=== PATIENT | female | born 1940 | race Two or more races ===

== ENCOUNTER 2020-02-07 12:30 | Emergency (ER) | payer MEDICARE ==
[~2020-02-07] VITALS: Ht 152.4 cm; Wt 54.0 kg
[2020-02-07 15:36] LABS: CHLORIDE 104 mEq/L (98-107)
[2020-02-07 15:42] LABS: HEMATOCRIT. 33.5 % (36.0-48.0); HEMOGLOBIN. 11.3 g/dL (12.0-16.0); MEAN CORPUSCULAR HEMOGLOBIN 29.6 pg (28.0-32.0); MEAN CORPUSCULAR VOLUME 87.7 fL (81.0-99.0); MEAN PLATELET VOLUME 8.4 fl (7.4-10.4); PLATELET 327 x1000/uL (130-400); RED BLOOD CELL COUNT 3.82 mill/uL (4.2-5.4); RED CELL DISTRIBUTION WIDTH 21.7 % (11.6-14.6)
[2020-02-07] MEDS ORDERED: VANCOMYCIN 1 G PREMIX 200 ML IV ONE (16:15)
[2020-02-07] MEDS ORDERED: CEFAZOLIN 1000MG PREMIX 50 ML IV ONE ×2 (16:15→22:30)
[2020-02-07 16:52] LABS: PLATELET ESTIMATE NORMAL
[2020-02-07 17:04] LABS: CLARITY URINE CLEAR (CLEAR); COLOR URINE YELLOW (YELLOW); KETONES URINE TRACE (NEGATIVE); LEUKOCYTE ESTERASE URINE TRACE (NEGATIVE); NITRITE URINE NEGATIVE (NEGATIVE); OCCULT BLOOD URINE NEGATIVE (NEGATIVE); PROTEIN URINE 1+ (NEGATIVE); SPECIFIC GRAVITY URINE 1.033 (1.005-1.030)
[2020-02-07] MEDS ORDERED: IOHEXOL-300 100 ML BOTTLE ONE (17:24)
[2020-02-07] MEDS ORDERED: HYDROCODONE/ACETAMINOPHEN 5/325MG TABLET PO ONE (17:30)
[2020-02-08] MEDS: CEFAZOLIN 1000MG PREMIX 50 ML IV SCH ×2 (08:42→17:14)
[2020-02-08] MEDS ORDERED: LORAZEPAM 2MG/ML CPJ IV ONE (10:15)
[2020-02-09 13:48] VITALS: BP 147/96
== END 2020-02-09 14:02 | disposition left against medical advice (07) ==
LOC: ER 12:30 → CANBEDREQ 02-08 22:51 → ER 02-09 14:02
DX: R22.0 Localized swelling, mass and lump, head (principal); Z20.828 Contact with and (suspected) exposure to other viral communicable diseases; L02.01 Cutaneous abscess of face; N30.00 Acute cystitis without hematuria; Z85.9 Personal history of malignant neoplasm, unspecified
CPT/HCPCS: 36415; 70487; 80053; 81003; 83605; 84145; 85025; 87040; 96365; 96368; 99285; C9803; J0690; J3370; Q9967; U0003; 87635

== ENCOUNTER 2020-02-09 18:54 | Emergency (ER) | payer BC, MEDICAID ==
[~2020-02-09] VITALS: Ht 157.5 cm; Wt 50.0 kg
[2020-02-09] MEDS ORDERED: PIPERACILLIN/TAZ 3.375G PREMIX 50 ML IV ONE (19:30)
[2020-02-09] MEDS ORDERED: VANCOMYCIN 1 G PREMIX 200 ML IV ONE (19:30)
[2020-02-09] MEDS ORDERED: SODIUM CHLORIDE 0.9% 1000ML BAG (SEPSIS BOLUS) IV ONE (19:30)
[2020-02-09 21:22] LABS: CHLORIDE 104 mEq/L (98-107)
[2020-02-09 21:26] LABS: HEMOGLOBIN. 10.2 g/dL (12.0-16.0); MEAN CORPUSCULAR HEMOGLOBIN 29.9 pg (28.0-32.0); MEAN CORPUSCULAR VOLUME 88.1 fL (81.0-99.0); MEAN PLATELET VOLUME 8.5 fl (7.4-10.4); PLATELET 313 x1000/uL (130-400); RED BLOOD CELL COUNT 3.41 mill/uL (4.2-5.4); RED CELL DISTRIBUTION WIDTH 20.2 % (11.6-14.6)
[2020-02-09] MEDS ORDERED: LIDOCAINE 1%/EPI 1:100,000 10 ML VIAL IJ ONE (21:30)
[2020-02-09] MEDS ORDERED: LIDOCAINE HCL/EPINEPHRINE 1%-EPI 1:100,000 20 ML VIAL INFIL NR (21:45)
[2020-02-09] MEDS ORDERED: IOHEXOL-300 100 ML BOTTLE ONE (22:04)
[2020-02-09] MEDS ORDERED: DOCUSATE SODIUM 100MG CAPSULE PO PRN (22:15)
[2020-02-09] MEDS ORDERED: CLONIDINE 0.1MG TABLET PO PRN (22:15)
[2020-02-09] MEDS ORDERED: NITROGLYCERIN 0.4MG TABLET SL SL PRN (22:15)
[2020-02-09] MEDS ORDERED: IPRATROPIUM/ALBUTEROL 0.5-3(2.5)MG/3ML NEB NEB PRN (22:15)
[2020-02-09] MEDS ORDERED: ONDANSETRON HCL 4MG/2ML INJ IV PRN (22:15)
[2020-02-09] MEDS ORDERED: ACETAMINOPHEN 325MG TABLET PO PRN ×2 (22:15)
[2020-02-09] MEDS ORDERED: ZOLPIDEM TARTRATE 5MG TABLET PO PRN (22:15)
[2020-02-09] MEDS ORDERED: MAGNESIUM/ALUMINUM HYDROXIDE/SIMETHICONE 30ML UDC PO PRN (22:15)
[2020-02-09] MEDS ORDERED: GUAIFENESIN 200MG/10ML SUGAR FREE UDC PO PRN (22:15)
[2020-02-09] MEDS ORDERED: NA PHOS,M-B/NA PHOS,DI-BA ENEMA 118ML PR PRN (22:15)
[2020-02-09] MEDS ORDERED: SODIUM CHLORIDE 0.9% 1,000 ML IV SCH (22:30)
[2020-02-09] MEDS ORDERED: KETOROLAC 15MG/ML VIAL IV PRN (22:34)
[2020-02-09] MEDS ORDERED: TRAMADOL 50MG TABLET PO PRN (22:34)
[2020-02-09] MEDS ORDERED: HALOPERIDOL LACTATE 5MG/ML VIAL IM PRN (22:35)
[2020-02-09 23:12] LABS: PLATELET ESTIMATE NORMAL
[2020-02-09 23:47] LABS: VITAMIN B12 SERUM 1928 pg/mL (211-911)
[2020-02-09 23:49] LABS: FOLIC ACID (FOLATE) SERUM > 20.00 ng/mL (>5.38)
[2020-02-09 23:51] LABS: INR 1.1; PROTHROMBIN TIME 11.4 sec (9.6-11.0)
[2020-02-09 23:52] LABS: CLARITY URINE CLEAR (CLEAR); COLOR URINE YELLOW (YELLOW); KETONES URINE NEGATIVE (NEGATIVE); LEUKOCYTE ESTERASE URINE 1+ (NEGATIVE); NITRITE URINE NEGATIVE (NEGATIVE); OCCULT BLOOD URINE NEGATIVE (NEGATIVE); PH URINE 6.5 (4.5-8.0); PROTEIN URINE NEGATIVE (NEGATIVE); SPECIFIC GRAVITY URINE 1.027 (1.005-1.030); UROBILINOGEN URINE 0.2 E.U./dL (0.2-1.0)
[2020-02-10 00:02] LABS: *AMPHETAMINES SCREEN URINE NEGATIVE (NEGATIVE); *BARBITURATES SCREEN URINE NEGATIVE (NEGATIVE); *BENZODIAZEPINES SCREEN URINE NEGATIVE (NEGATIVE)
[2020-02-10 00:04] LABS: *COCAINE SCREEN URINE NEGATIVE (NEGATIVE); CANNABINOID URINE SCREEN NEGATIVE (NEGATIVE); METHADONE URINE SCREEN NEGATIVE (NEGATIVE); OPIATES URINE SCREEN NEGATIVE (NEGATIVE); PHENCYCLIDINE URINE SCREEN NEGATIVE (NEGATIVE)
[2020-02-10] MEDS ORDERED: PIPERACILLIN/TAZ 3.375G PREMIX 50 ML IV SCH (06:00)
[2020-02-10] MEDS ORDERED: ZINC SULFATE 220 MG ( 50 ) CAPSULE PO SCH (09:00)
[2020-02-10] MEDS ORDERED: ASCORBIC ACID 500 MG TABLET PO SCH (09:00)
[2020-02-10] MEDS ORDERED: ENOXAPARIN 40MG/0.4ML SYR SUBCUT SCH (09:00)
[2020-02-10] MEDS ORDERED: FAMOTIDINE 20MG TABLET PO SCH (09:00)
[2020-02-10 09:59] VITALS: BP 129/84
[2020-02-10] MEDS ORDERED: VANCOMYCIN 500 MG PREMIX 100 ML IV SCH (12:00)
== END 2020-02-10 11:44 | disposition left against medical advice (07) ==
LOC: ER 18:54 → EDBEDREQ 22:27 → EDBEDREQTM 22:27 → EDBEDREQSVC 22:27 → SUPCPDRO 22:49 → EDBEDREQDT 02-10 00:21 → EDBEDREQ 02-10 00:21 → EDBEDREQTM 02-10 00:21 → EDBEDREQ 02-10 07:32 → ER 02-10 11:44 → CANBEDREQ 02-10 19:22
DX: A41.9 Sepsis, unspecified organism (principal); L02.01 Cutaneous abscess of face
CPT/HCPCS: 36415; 70487; 71045; 80053; 80061; 80305; 81003; 82607; 82746; 83036; 83540; 83550; 83605; 84145; 84484; 85025; 85610; 87040; 87086; 93005; 96361; 96365; 96366; 96367; 99291; J1650; J2543; J3370; Q9967; J1630; J3490

== ENCOUNTER 2020-03-14 12:55 | Emergency (ER) | payer MEDICARE, MEDICAID ==
[~2020-03-14] VITALS: Ht 165.1 cm; Wt 48.0 kg
[2020-03-14] MEDS ORDERED: VANCOMYCIN 1 G PREMIX 200 ML IV ONE (13:15)
[2020-03-14] MEDS ORDERED: SODIUM CHLORIDE 0.9% 1000ML BAG (SEPSIS BOLUS) IV ONE (13:15)
[2020-03-14] MEDS ORDERED: PIPERACILLIN/TAZ 3.375G PREMIX 50 ML IV ONE (13:15)
[2020-03-14 13:37] LABS: HEMATOCRIT. 29.5 % (36.0-48.0); HEMOGLOBIN. 10.1 g/dL (12.0-16.0); MEAN CORPUSCULAR HEMOGLOBIN 30.3 pg (28.0-32.0); MEAN CORPUSCULAR VOLUME 88.4 fL (81.0-99.0); MEAN PLATELET VOLUME 7.7 fl (7.4-10.4); PLATELET 200 x1000/uL (130-400); RED BLOOD CELL COUNT 3.34 mill/uL (4.2-5.4); RED CELL DISTRIBUTION WIDTH 14.2 % (11.6-14.6)
[2020-03-14 13:44] LABS: CHLORIDE 107 mEq/L (98-107)
[2020-03-14 14:06] LABS: PLATELET ESTIMATE NORMAL
[2020-03-14 14:07] LABS: INR 1.1; PROTHROMBIN TIME 11.5 sec (9.6-11.0)
[2020-03-14] MEDS ORDERED: SODIUM CHLORIDE 0.9% 1,000 ML IV ONE (14:45)
[2020-03-14 15:34] LABS: CREATINE KINASE 67 IU/L (26-192)
[2020-03-14 15:45] LABS: CLARITY URINE CLEAR (CLEAR); COLOR URINE YELLOW (YELLOW); KETONES URINE NEGATIVE (NEGATIVE); LEUKOCYTE ESTERASE URINE 2+ (NEGATIVE); NITRITE URINE NEGATIVE (NEGATIVE); OCCULT BLOOD URINE TRACE (NEGATIVE); PROTEIN URINE TRACE (NEGATIVE); SPECIFIC GRAVITY URINE 1.012 (1.005-1.030)
[2020-03-14 20:00] VITALS: BP 162/86
== END 2020-03-14 21:22 | disposition short-term general hospital (02) ==
LOC: ER 13:15
DX: I95.89 Other hypotension (principal); E86.0 Dehydration; N30.00 Acute cystitis without hematuria; G93.49 Other encephalopathy; D64.9 Anemia, unspecified; I45.10 Unspecified right bundle-branch block; Z86.73 Personal history of transient ischemic attack (TIA), and cerebral infarction without residual deficits; Z90.10 Acquired absence of unspecified breast and nipple; Z85.9 Personal history of malignant neoplasm, unspecified; Z86.59 Personal history of other mental and behavioral disorders
CPT/HCPCS: 36415; 70450; 71045; 80053; 81003; 82550; 82962; 83605; 84145; 84484; 85025; 85610; 87040; 87077; 87086; 87186; 93005; 96365; 96366; 96368; 99285; J2543; J3370; J7030

== ENCOUNTER 2020-03-26 13:57 | Inpatient (IN) | payer MEDICARE, MEDICAID ==
[~2020-03-26] VITALS: Ht 160 cm; Wt 45.4 kg
[2020-03-26] MEDS ORDERED: ACETAMINOPHEN 325MG TABLET PO STA (15:17)
[2020-03-26] MEDS ORDERED: PIPERACILLIN/TAZ 3.375G PREMIX 50 ML IV ONE (15:30)
[2020-03-26] MEDS ORDERED: VANCOMYCIN 1 G PREMIX 200 ML IV ONE (15:30)
[2020-03-26] MEDS ORDERED: SODIUM CHLORIDE 0.9% 1000ML BAG (SEPSIS BOLUS) IV ONE (15:30)
[2020-03-26] MEDS ORDERED: HALOPERIDOL LACTATE 5MG/ML VIAL IM ONE (15:45)
[2020-03-26 16:07] LABS: BASOPHILS % 0.5 % (0.0-2.0); EOSINOPHILS % 0.3 % (0.0-5.0); HEMATOCRIT. 29.2 % (36.0-48.0); HEMOGLOBIN. 9.7 g/dL (12.0-16.0); LYMPHOCYTES % 7.7 % (20.0-50.0); MEAN CORPUSCULAR HEMOGLOBIN 29.1 pg (28.0-32.0); MEAN CORPUSCULAR VOLUME 88.1 fL (81.0-99.0); MEAN PLATELET VOLUME 7.3 fl (7.4-10.4); MONOCYTES % 5.6 % (2.0-8.0); NEUTROPHILS % 85.9 % (40.0-76.0); PLATELET 483 x1000/uL (130-400); RED BLOOD CELL COUNT 3.32 mill/uL (4.2-5.4)
[2020-03-26 16:14] LABS: CHLORIDE 102 mEq/L (98-107)
[2020-03-26 16:16] LABS: PROTHROMBIN TIME 10.9 sec (9.6-11.0)
[2020-03-26] MEDS ORDERED: OLANZAPINE 5MG TABLET PO SCH (17:30)
[2020-03-26 21:46] VITALS: BP 139/71
[2020-03-26 23:00] VITALS: BP 139/71
[2020-03-27] VITALS: BP 161/83
[2020-03-27] MEDS ORDERED: DIPHENHYDRAMINE 50MG/ML VIAL IV PRN
[2020-03-27] MEDS ORDERED: ACETAMINOPHEN 325MG TABLET PO PRN ×2
[2020-03-27] MEDS ORDERED: GUAIFENESIN 200MG/10ML SUGAR FREE UDC PO PRN
[2020-03-27] MEDS ORDERED: POTASSIUM CHLORIDE INJ 40 MEQ in DEXT 5% WATER 250 ML IV SCH (01:00)
[2020-03-27] MEDS: CEFTRIAXONE 1,000 MG in DEXTROSE 5% WATER 50 ML IV SCH (02:09)
[2020-03-27 04:00] VITALS: BP 152/79
[2020-03-27 06:56] LABS: BASOPHILS % 1.1 % (0.0-2.0); EOSINOPHILS % 2.5 % (0.0-5.0); HEMATOCRIT. 23.2 % (36.0-48.0); HEMOGLOBIN. 7.7 g/dL (12.0-16.0); LYMPHOCYTES % 16.2 % (20.0-50.0); MEAN CORPUSCULAR HEMOGLOBIN 29.2 pg (28.0-32.0); MEAN CORPUSCULAR VOLUME 87.8 fL (81.0-99.0); MEAN PLATELET VOLUME 7.4 fl (7.4-10.4); MONOCYTES % 7.2 % (2.0-8.0); PLATELET 325 x1000/uL (130-400); RED BLOOD CELL COUNT 2.64 mill/uL (4.2-5.4); RED CELL DISTRIBUTION WIDTH 14.6 % (11.6-14.6)
[2020-03-27 07:18] LABS: CHLORIDE 107 mEq/L (98-107)
[2020-03-27 08:00] VITALS: BP 100/67
[2020-03-27] MEDS ORDERED: ENOXAPARIN 40MG/0.4ML SYR SUBCUT SCH (09:00)
[2020-03-27] MEDS ORDERED: FAMOTIDINE 20MG TABLET PO SCH (09:00)
[2020-03-27] MEDS ORDERED: MAGNESIUM 2 G PREMIX 50 ML IV NR (11:30)
[2020-03-27 12:00] VITALS: BP 120/71
[2020-03-27] MEDS: PANTOPRAZOLE SODIUM 40 MG/VIAL IV SCH (12:12)
[2020-03-27 16:00] VITALS: BP 111/64
[2020-03-27 17:05] LABS: CLARITY URINE CLEAR (CLEAR); COLOR URINE YELLOW (YELLOW); KETONES URINE NEGATIVE (NEGATIVE); LEUKOCYTE ESTERASE URINE TRACE (NEGATIVE); NITRITE URINE NEGATIVE (NEGATIVE); OCCULT BLOOD URINE NEGATIVE (NEGATIVE); PH URINE 6.5 (4.5-8.0); PROTEIN URINE NEGATIVE (NEGATIVE); SPECIFIC GRAVITY URINE 1.016 (1.005-1.030)
[2020-03-27 20:00] VITALS: BP 156/75
[2020-03-27] MEDS: ZOLPIDEM TARTRATE 5MG TABLET PO PRN (21:35)
[2020-03-28] VITALS: BP 169/83
[2020-03-28] MEDS: CEFTRIAXONE 1,000 MG in DEXTROSE 5% WATER 50 ML IV SCH (00:08)
[2020-03-28 04:00] VITALS: BP 138/73
[2020-03-28 08:00] VITALS: BP_SYST 126; BP_SYST 156; BP_DIAS 68; BP_DIAS 73
[2020-03-28] MEDS: RISPERIDONE 1MG TABLET PO SCH (08:44)
[2020-03-28] MEDS: PANTOPRAZOLE SODIUM 40 MG/VIAL IV SCH (08:44)
[2020-03-28] MEDS: LORAZEPAM 2MG/ML CPJ IV PRN (08:45)
[2020-03-28 11:07] LABS: BASOPHILS % 1.1 % (0.0-2.0); EOSINOPHILS % 1.2 % (0.0-5.0); HEMATOCRIT. 23.9 % (36.0-48.0); HEMOGLOBIN. 7.9 g/dL (12.0-16.0); LYMPHOCYTES % 12.4 % (20.0-50.0); MEAN CORPUSCULAR VOLUME 87.6 fL (81.0-99.0); MEAN PLATELET VOLUME 7.2 fl (7.4-10.4); NEUTROPHILS % 80.3 % (40.0-76.0); PLATELET 353 x1000/uL (130-400); RED BLOOD CELL COUNT 2.73 mill/uL (4.2-5.4); RED CELL DISTRIBUTION WIDTH 14.6 % (11.6-14.6)
[2020-03-28 11:15] LABS: CHLORIDE 108 mEq/L (98-107)
[2020-03-28 11:26] LABS: PHOSPHORUS 3.1 mg/dL (2.5-4.9)
[2020-03-28 12:00] VITALS: BP 153/81
[2020-03-28 16:00] VITALS: BP 149/73
[2020-03-28 20:00] VITALS: BP 126/73
[2020-03-28] MEDS: FAMOTIDINE 20MG/2ML VIAL IV SCH (20:57)
[2020-03-29] VITALS: BP 155/77
[2020-03-29] MEDS: CEFTRIAXONE 1,000 MG in DEXTROSE 5% WATER 50 ML IV SCH (00:41)
[2020-03-29 04:00] VITALS: BP 141/73
[2020-03-29 08:00] VITALS: BP 168/82
[2020-03-29] MEDS: RISPERIDONE 1MG TABLET PO SCH (08:59)
[2020-03-29] MEDS: FAMOTIDINE 20MG/2ML VIAL IV SCH ×2 (08:59→21:48)
[2020-03-29] MEDS: CLONIDINE 0.1MG TABLET PO PRN (09:00)
[2020-03-29 12:00] VITALS: BP 108/57
[2020-03-29] MEDS: LORAZEPAM 2MG/ML CPJ IV PRN (12:57)
[2020-03-29 16:00] VITALS: BP 109/56
[2020-03-29 16:43] LABS: TOTAL IRON BINDING CAPACITY 172 ug/dL (250-450)
[2020-03-29 20:00] VITALS: BP 139/75
[2020-03-30] VITALS: BP 140/86
[2020-03-30] MEDS: CEFTRIAXONE 1,000 MG in DEXTROSE 5% WATER 50 ML IV SCH ×2 (01:53→23:47)
[2020-03-30 04:00] VITALS: BP 124/79
[2020-03-30 08:00] VITALS: BP 138/78
[2020-03-30] MEDS: RISPERIDONE 1MG TABLET PO SCH (09:21)
[2020-03-30] MEDS: FAMOTIDINE 20MG/2ML VIAL IV SCH ×2 (09:21→20:57)
[2020-03-30] MEDS ORDERED: DIATR MEGLU/DIATRIZOATE SOLN 30ML PO SCH (10:30)
[2020-03-30 10:56] LABS: BASOPHILS % 1.2 % (0.0-2.0); EOSINOPHILS % 0.8 % (0.0-5.0); HEMATOCRIT. 29.1 % (36.0-48.0); HEMOGLOBIN. 9.8 g/dL (12.0-16.0); LYMPHOCYTES % 13.1 % (20.0-50.0); MEAN CORPUSCULAR HEMOGLOBIN 29.4 pg (28.0-32.0); MEAN CORPUSCULAR VOLUME 87.3 fL (81.0-99.0); MEAN PLATELET VOLUME 7.3 fl (7.4-10.4); MONOCYTES % 4.2 % (2.0-8.0); NEUTROPHILS % 80.7 % (40.0-76.0); PLATELET 415 x1000/uL (130-400); RED BLOOD CELL COUNT 3.34 mill/uL (4.2-5.4); RED CELL DISTRIBUTION WIDTH 14.3 % (11.6-14.6)
[2020-03-30 11:11] LABS: CHLORIDE 106 mEq/L (98-107)
[2020-03-30 12:00] VITALS: BP 165/91
[2020-03-30 16:00] VITALS: BP 189/92
[2020-03-30] MEDS: CLONIDINE 0.1MG TABLET PO PRN ×2 (16:56→23:47)
[2020-03-30] MEDS: LORAZEPAM 2MG/ML CPJ IV PRN (16:56)
[2020-03-30 20:00] VITALS: BP 154/94
[2020-03-30] MEDS: ZOLPIDEM TARTRATE 5MG TABLET PO PRN (20:57)
[2020-03-31] VITALS: BP 162/92
[2020-03-31 04:00] VITALS: BP 145/88
[2020-03-31] MEDS ORDERED: AMLODIPINE 5MG TABLET PO SCH (10:00)
[2020-03-31] MEDS: RISPERIDONE 1MG TABLET PO SCH (11:54)
[2020-03-31] MEDS: FAMOTIDINE 20MG/2ML VIAL IV SCH ×2 (11:54→21:00)
[2020-03-31 12:00] VITALS: BP 146/77
[2020-03-31] MEDS ORDERED: DIATR MEGLU/DIATRIZOATE SOLN 30ML PO SCH (13:30)
[2020-03-31 16:00] VITALS: BP 118/65
[2020-03-31 20:00] VITALS: BP 124/62
[2020-03-31 21:16] VITALS: BP 124/62
[2020-04-01] VITALS: BP 157/81
== END 2020-04-01 00:50 | DRG 871 ==
LOC: ER 13:57 → 5WST 18:28 → ENRESERV 20:03 → 5WST 03-30 03:54
PROVIDERS: ADMIT Internal Medicine; ATTEND Internal Medicine
DX: A41.9 Sepsis, unspecified organism (principal); G93.41 Metabolic encephalopathy; E46 Unspecified protein-calorie malnutrition; E87.2 Acidosis; K92.2 Gastrointestinal hemorrhage, unspecified; N39.0 Urinary tract infection, site not specified; L03.211 Cellulitis of face; Z68.1 Body mass index [BMI] 19.9 or less, adult; E87.6 Hypokalemia; D64.9 Anemia, unspecified; F03.90 Unspecified dementia, unspecified severity, without behavioral disturbance, psychotic disturbance, mood disturbance, and anxiety; Z20.828 Contact with and (suspected) exposure to other viral communicable diseases; M19.90 Unspecified osteoarthritis, unspecified site; C43.9 Malignant melanoma of skin, unspecified; Z85.038 Personal history of other malignant neoplasm of large intestine; Z85.820 Personal history of malignant melanoma of skin; Z96.642 Presence of left artificial hip joint
CPT/HCPCS: 36415; 71045; 73502; 80048; 80053; 81003; 82270; 82378; 82728; 83540; 83550; 83605; 83735; 84100; 84145; 84484; 85025; 87635; 93005; 97162; 99291; C9113; J0696; J1630; J1650; J2060; J2543; J3370; J3475; J3480; J3490; J7030; J7060; Q9963